=== PATIENT | male | born 1975 | race Caucasian/White ===

== ENCOUNTER 2018-11-25 09:08 | Emergency (ER) | payer OTHER ==
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
[2018-11-25 11:32] LABS: Basophils % (Auto) 0.4 % (0.0-1.8); Eosinophils # (Auto) 0.2 K/mm3 (0.0-0.4); Eosinophils % (Auto) 3.2 % (0.0-4.3); Hematocrit 47.6 % (35.5-45.6); Hemoglobin 16.4 gm/dl (11.8-15.2); Lymphocytes # (Auto) 1.7 K/mm3 (1.2-5.4); Mean Corpuscular HGB Conc 35 % (32-34); Mean Corpuscular Volume 99 fl (84-94); Monocytes # (Auto) 0.6 K/mm3 (0.0-0.8); Monocytes % (Auto) 9.4 % (0.0-7.3); Platelet Count 237 K/mm3 (140-440); Red Blood Count 4.82 M/mm3 (3.65-5.03)
[2018-11-25 11:37] LABS: Bilirubin,Urine NEG (Negative); Blood,Urine SM (Negative); Color,Urine Yellow (Yellow); Mucus,Urine FEW /HPF; Protein,Urine <15 mg/dL mg/dL (Negative); Urobilinogen,Urine < 2.0 mg/dL (<2.0)
[2018-11-25 11:44] LABS: WBC,Urine < 1.0 /HPF (0.0-6.0)
[2018-11-25 11:46] LABS: Amphetamine Screen,Urine PRESUMPTIVE NEGATIVE; Benzodiazepines Screen,Urine PRESUMPTIVE NEGATIVE; Methadone Screen,Urine PRESUMPTIVE NEGATIVE; Opiate Screen,Urine PRESUMPTIVE NEGATIVE
[2018-11-25 11:59] LABS: Cannabinoid Screen,Urine PRESUMPTIVE POSITIVE; Cocaine Screen,Urine PRESUMPTIVE POSITIVE
[2018-11-25 13:00] LABS: Alanine Aminotransferase 30 units/L (7-56); Albumin 4.1 g/dL (3.9-5); BUN/Creatinine Ratio 13; Blood Urea Nitrogen 13 mg/dL (9-20); Calcium 9.1 mg/dL (8.4-10.2); Hemolysis Index 35
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
[2018-11-26] MEDS: VISTARIL PO SCH (22:05)
[2018-11-27] MEDS: VISTARIL PO SCH (22:07)
--- NOTE | 2018-11-28 12:16 | Progress Note ---
Subjective - Reason for Consult Consult date: 11/28/18 Reason for consult: Psyhchiatry Follow-up - Chief Complaint Chief complaint: "I hope to get better" 43 y.o. white male who presented to the ER to get his Depakote refilled. Today the patient us calm and cooperative during the assessment. He stated that he want to stop drinking (etoh). He stated that alcohol consumption has been his biggest "down fall" for him the past several years. He did admit that he enjoys "drinking." He stated that he did get sleep last night and feel "better mentally." He denies SI/HI's and AVH's. He denies any side effects of he medications. Mental Status Exam - Vital signs Last Vital Signs Temp 97.7 F 11/28/18 07:33 Pulse 59 L 11/28/18 07:33 Resp 16 11/27/18 18:24 BP 118/66 11/28/18 07:33 Pulse Ox 96 11/28/18 07:33 - Exam Narrative exam: MSE: Appearance: calm, cooperative Behavior: regular eye contact Speech: regular rate and tone Mood: "okay" Affect: congruent to mood Thought Process: circumstantial Thought Content: denies SI/HI's and AVH's Motor Activity: sitting up in bed Cognition: A/O x 3 Insight: fair Judgment: fair Assessment and Plan Impression: Bipolar DO. Alcohol lUse DO. Substance Use DO (cocaine). Cannabis Use DO. Today the patient us calm and cooperative during the assessment. DDX: Substance Induced Mood DO Recommendations/Plan: Reevaluate the patient's 1013 in 24 hours. Continue Depakote 750 mg PO HS for mood and Vistaril 25 mg PO HS for for anxiety. dispo: If the patient's 1013 is rescinded, he can follow up with [facility] for outpatient psy services. Will staff with Dr Deirdre Goodrich
[2018-11-28] MEDS: VISTARIL PO SCH (22:20)
--- NOTE | 2018-11-29 12:13 | Progress Note ---
Subjective - Reason for Consult Consult date: 11/29/18 Reason for consult: Pyschiatry Follow-up - Chief Complaint Chief complaint: "I want kill myself if I'm having a good day" 43 y.o. white male who presented to the ER to get his Depakote refilled. Today the patient is calm during the assessment. He stated that he was okay for now. He would not confirm or deny Si's when asked. He stated that his SI's are day to day. He denies HI's and AVH's. He denies any side effects of he medications. Mental Status Exam - Vital signs Last Vital Signs Temp 98.0 F 11/29/18 04:00 Pulse 75 11/29/18 04:00 Resp 18 11/29/18 04:00 BP 125/91 11/29/18 04:00 Pulse Ox 97 11/29/18 04:00 - Exam Narrative exam: MSE: Appearance: calm, cooperative Behavior: regular eye contact Speech: regular rate and tone Mood: "okay" Affect: congruent to mood Thought Process: circumstantial Thought Content: denies HI's and AVH's Motor Activity: sitting up in bed Cognition: A/O x 3 Insight: fair Judgment: variable Assessment and Plan Impression: Bipolar DO. Alcohol lUse DO. Substance Use DO (cocaine). Cannabis Use DO. Today the patient us calm during the assessment. DDX: Substance Induced Mood DO Recommendations/Plan: Continue 1013, Depakote 750 mg PO HS for mood, and Vistaril 25 mg PO HS for for anxiety. dispo: The patient was accepted at [facility] for inpatient psy services pending transport time. Will staff with Dr Deirdre Goodrich
[2018-11-29] MEDS: VISTARIL PO SCH (22:47)
[2018-11-30 07:45] VITALS: BP 121/78
== END 2018-11-30 09:03 ==
LOC: EEVIPCON 09:08 → ED 09:08
DX: F31.9 Bipolar disorder, unspecified (principal); F17.200 Nicotine dependence, unspecified, uncomplicated; F10.10 Alcohol abuse, uncomplicated; F14.10 Cocaine abuse, uncomplicated; F12.10 Cannabis abuse, uncomplicated; Z88.0 Allergy status to penicillin
CPT/HCPCS: 36415; 80053; 80164; 80307; 81001; 82150; 83690; 85025; G0480; 80320; Q0177